=== PATIENT | female | born 1940 | race American Indian/Alaskan Native ===

== ENCOUNTER → 2019-07-13 | Outpatient (CLI) | payer MEDICARE, OTHER ==
[~2019-07-13] MED LIST: ASPI81CH PO; ERGO400 PO; LIVALO2 MG PO; NIFE90ER PO; ONDA4ODT MM; POTA10T PO; VALS80 PO; VICODIN 5-3001 EACH PO
[2019-07-13 11:05] LABS: Source, Urine Clean Catch
[2019-07-13 14:16] LABS: Bilirubin, Urine Neg (Neg); Blood, Urine Neg (Neg); Glucose Qualitative, Urine Neg (Neg); Ketones, Urine Neg (Neg); Leukocyte Esterase, Urine Neg (Neg); Nitrite, Urine Neg (Neg); Protein, Urine Neg (Neg); Specific Gravity, Urine 1.005 (1.003-1.022); Urobilinogen, Urine NORM (Normal)
[2019-07-13 14:27] LABS: Appearance, Urine Clear (Clear); Color, Urine Pale Yellow (P-Yellow)
== END | disposition home or self-care (01) ==
LOC: LAB SHORT 11:04 → LAB 11:04
PROVIDERS: Internal Medicine
DX: N39.0 Urinary tract infection, site not specified (principal)
CPT/HCPCS: 81003

== ENCOUNTER → 2022-12-22 | Outpatient (CLI) | payer MEDICARE, OTHER ==
[2022-12-22 15:34] LABS: Source, Urine Clean Catch
[2022-12-22 18:30] LABS: Appearance, Urine Hazy (Clear); Bilirubin, Urine Neg (Neg); Blood, Urine 1+ (Neg); Color, Urine Yellow (P-Yellow); Glucose Qualitative, Urine Neg (Neg); Ketones, Urine Neg (Neg); Leukocyte Esterase, Urine 3+ (Neg); Nitrite, Urine Neg (Neg); Protein, Urine 1+ (Neg); Urobilinogen, Urine NORM (Normal)
[2022-12-22 19:51] LABS: Bacteria Many /hpf; Mucus Light (0-Heavy); Red Blood Cells, Urine 0-2 /hpf (0-2); Squamous Epithelial Cells Few /hpf (Few); White Blood Cells, Urine TNTC /hpf (0-5)
== END | disposition home or self-care (01) ==
LOC: LAB SHORT 09:50 → LAB 09:50 → EDSTATUS 12-19 15:40 → LAB FUT 12-19 15:40
PROVIDERS: Internal Medicine
DX: R82.90 Unspecified abnormal findings in urine (principal)
CPT/HCPCS: 81001

== ENCOUNTER → 2022-12-31 | Outpatient (CLI) | payer MEDICARE, OTHER ==
[2022-12-31 10:51] LABS: Source, Urine Clean Catch
[2022-12-31 12:46] LABS: Appearance, Urine Clear (Clear); Bilirubin, Urine Neg (Neg); Blood, Urine 1+ (Neg); Color, Urine Yellow (P-Yellow); Glucose Qualitative, Urine Neg (Neg); Ketones, Urine Neg (Neg); Leukocyte Esterase, Urine 1+ (Neg); Nitrite, Urine Neg (Neg); Protein, Urine Neg (Neg); Urobilinogen, Urine NORM (Normal)
[2022-12-31 13:26] LABS: Bacteria Few /hpf; Squamous Epithelial Cells Mod /hpf (Few)
== END ==
LOC: LAB 10:48 → LAB SHORT 10:48 → LAB FUT 12-25 15:15
PROVIDERS: Internal Medicine
DX: N39.0 Urinary tract infection, site not specified (principal)
CPT/HCPCS: 81001

== ENCOUNTER → 2023-01-05 | Outpatient (CLI) | payer MEDICARE, OTHER ==
[2023-01-05 14:38] LABS: Source, Urine Clean Catch
[2023-01-05 18:32] LABS: Appearance, Urine Cloudy (Clear); Bilirubin, Urine Neg (Neg); Blood, Urine 2+ (Neg); Glucose Qualitative, Urine Neg (Neg); Ketones, Urine Neg (Neg); Leukocyte Esterase, Urine 3+ (Neg); Nitrite, Urine Neg (Neg); Protein, Urine Neg (Neg); Specific Gravity, Urine 1.005 (1.003-1.022); Urobilinogen, Urine NORM (Normal)
[2023-01-05 18:47] LABS: Color, Urine Pale Yellow (P-Yellow); White Blood Cells, Urine TNTC /hpf (0-5)
[2023-01-05 18:48] LABS: Bacteria Many /hpf; Squamous Epithelial Cells Few /hpf (Few)
== END ==
LOC: LAB 14:37 → LAB SHORT 14:37 → EDSTATUS 01-02 16:50 → LAB FUT 01-02 16:50
PROVIDERS: Internal Medicine
DX: N39.0 Urinary tract infection, site not specified (principal)
CPT/HCPCS: 81001

== ENCOUNTER → 2023-01-28 | Outpatient (CLI) | payer MEDICARE, OTHER ==
[2023-01-29 09:38] LABS: Appearance, Urine Hazy (Clear); Bilirubin, Urine Neg (Neg); Blood, Urine Neg (Neg); Glucose Qualitative, Urine Neg (Neg); Ketones, Urine Neg (Neg); Leukocyte Esterase, Urine Neg (Neg); Nitrite, Urine Neg (Neg); Protein, Urine Neg (Neg); Urobilinogen, Urine NORM (Normal)
[2023-01-29 09:44] LABS: Color, Urine Pale Yellow (P-Yellow)
[2023-01-29 09:48] LABS: Bacteria Few /hpf; Red Blood Cells, Urine 0-2 /hpf (0-2); Squamous Epithelial Cells Mod /hpf (Few); White Blood Cells, Urine 0-2 /hpf (0-5)
[2023-01-29 09:49] LABS: Renal Epithelial Rare /hpf (0-Rare); Transitional Epithelial Cells Rare /hpf (0-Rare)
== END ==
LOC: LAB 08:13 → LAB SHORT 08:13
PROVIDERS: Internal Medicine
DX: N39.0 Urinary tract infection, site not specified (principal)
CPT/HCPCS: 81001

== ENCOUNTER 2024-04-04 14:25 | Emergency (ER) | payer OTHER, MEDICARE ==
[~2024-04-04] VITALS: Ht 149.9 cm; Wt 62.6 kg
[2024-04-04 15:09] VITALS: BP 169/69
== END 2024-04-04 17:49 | disposition home or self-care (01) ==
LOC: ER 14:25
DX: S02.2XXA Fracture of nasal bones, initial encounter for closed fracture (principal); W01.0XXA Fall on same level from slipping, tripping and stumbling without subsequent striking against object, initial encounter; I10 Essential (primary) hypertension; Z88.2 Allergy status to sulfonamides; Z79.899 Other long term (current) drug therapy; Z79.890 Hormone replacement therapy; Z87.891 Personal history of nicotine dependence
CPT/HCPCS: 70450; 70486; 99283-25

== ENCOUNTER 2024-07-26 11:01 | Day surgery (SDC) | payer MEDICARE, OTHER ==
[~2024-07-26] VITALS: Ht 149.9 cm; Wt 61.2 kg
[~2024-07-26 11:01] MED LIST changes: +Lactated Ringer's 1,000 ML IV ONE; +propofoL 50 ML IV ONE
[2024-07-26] MEDS ORDERED: Lactated Ringer's 1,000 ML IV ONE (12:08)
[2024-07-26] MEDS ORDERED: OMEP20ER PO (12:15)
[2024-07-26] MEDS ORDERED: LOSA50 (12:16)
[2024-07-26] MEDS ORDERED: ALDACTONE25 MG (12:16)
[2024-07-26] MEDS ORDERED: CALCIUM 600 MG1 EA18 (12:18)
[2024-07-26] MEDS ORDERED: LIVALO2 MG (12:18)
[2024-07-26] MEDS ORDERED: POTA10T (12:27)
[2024-07-26] MEDS ORDERED: LEVOTHYROXINE50 MC9 (12:29)
[2024-07-26] MEDS ORDERED: B-12500 MC2 (12:30)
--- NOTE | 2024-07-26 14:23 | NUR ---
07/26/24 1423 Guillaume Mondragon HR 30-40'S AT TIMES DURING CASE 0.2MG ROBINOL GIVEN, PER DR. LOVE ORDERS.
[2024-07-26] MEDS ORDERED: Glycopyrrolate 0.2 MG/ML 1MLVIAL ONE (14:30)
[2024-07-26 14:44] VITALS: BP 132/75
--- NOTE | 2024-07-26 15:04 | NUR ---
07/26/24 1504 CYNTHIA ANGEL RECEIVED REPORT FROM LAUREN MUNIZ. BETI AND THIS RN AT BEDSIDE. PT RESTING IN BED, L LAT POSITION. VSS ON ROOM AIR. PT DENYING PAIN/NAUSEA. ABDOMEN SOFT TO TOUCH.
== END 2024-07-26 15:00 | disposition home or self-care (01) ==
LOC: ORSCSDS 11:01
PROVIDERS: Internal Medicine Gastroenterology
PROC: 0DBN8ZX Excision of Sigmoid Colon, Via Natural or Artificial Opening Endoscopic, Diagnostic (ICD-10-PCS; principal; 2024-07-26 12:30)
PROC: 0DB78ZX Excision of Stomach, Pylorus, Via Natural or Artificial Opening Endoscopic, Diagnostic (ICD-10-PCS; principal; 2024-07-26 12:30)
PROC: 0W3P8ZZ Control Bleeding in Gastrointestinal Tract, Via Natural or Artificial Opening Endoscopic (ICD-10-PCS; principal; 2024-07-26 12:30)
PROC: 0DBL8ZX Excision of Transverse Colon, Via Natural or Artificial Opening Endoscopic, Diagnostic (ICD-10-PCS; principal; 2024-07-26 12:30)
DX: D50.9 Iron deficiency anemia, unspecified (principal); K21.9 Gastro-esophageal reflux disease without esophagitis; K63.5 Polyp of colon; K31.811 Angiodysplasia of stomach and duodenum with bleeding; K44.9 Diaphragmatic hernia without obstruction or gangrene; K29.70 Gastritis, unspecified, without bleeding; F17.210 Nicotine dependence, cigarettes, uncomplicated; I12.9 Hypertensive chronic kidney disease with stage 1 through stage 4 chronic kidney disease, or unspecified chronic kidney disease; N18.9 Chronic kidney disease, unspecified; E78.5 Hyperlipidemia, unspecified; E03.9 Hypothyroidism, unspecified; Z79.899 Other long term (current) drug therapy
CPT/HCPCS: 88305; 88342; J2704; J7120